=== PATIENT | male | born 1990 | race Caucasian/White ===

== ENCOUNTER 2022-12-18 23:36 | Inpatient (IN) | payer OTHER ==
[~2022-12-18] VITALS: Ht 182.9 cm; Wt 136.0 kg
[2022-12-19 00:58] LABS: BASOPHILS % (AUTO) 0.8 % (0.0-2.0); EOSINOPHILS % (AUTO) 2.8 % (1.0-6.0); HEMATOCRIT 37.6 % (41-53); HEMOGLOBIN 12.4 g/dL (13.5-17.5); LYMPHOCYTES # (AUTO) 2.5 K/uL (1.0-4.8); LYMPHOCYTES % (AUTO) 38.7 % (22.0-44.0); MEAN CORPUSCULAR HEMOGLOBIN 28.8 pg (26.0-34.0); MEAN CORPUSCULAR VOLUME 88 fL (80-100); MONOCYTES # (AUTO) 0.5 K/uL (0.1-1.0); MONOCYTES % (AUTO) 7.2 % (2.0-9.0); NEUTROPHILS # (AUTO) 3.2 K/uL (1.8-7.7); NEUTROPHILS % (AUTO) 50.5 % (40.0-70.0); PLATELET COUNT (AUTO) 296 K/uL (150-450); RED CELL DISTRIBUTION WIDTH 13.9 % (11.5-14.5); WHITE BLOOD COUNT (AUTO) 6.4 K/uL (4.5-11.0)
[2022-12-19 01:10] LABS: CARBON DIOXIDE 31 mmol/L (22-29); CHLORIDE 104 mmol/L (98-107); POTASSIUM 4.4 mmol/L (3.5-5.1); SODIUM SERUM 139 mmol/L (136-145)
[2022-12-19 01:11] LABS: ANION GAP 5 mmol/L (8-16); CALCIUM, TOTAL 9.2 mg/dL (8.8-10.5); CREATININE 1.02 mg/dL (0.60-1.30); GLOMERULAR FILTR. RATE CALC > 60 mL/min (>60); GLUCOSE,RANDOM 98 mg/dL (70-110); UREA NITROGEN, BLOOD 18 mg/dL (7-18)
[2022-12-19 01:13] LABS: ALANINE AMINOTRANSFERASE 11 U/L (12-78); ALBUMIN 3.4 g/dL (3.4-5.0); ALKALINE PHOSPHATASE 70 U/L (46-116); ASPARTATE AMINOTRANSFERASE 17 U/L (15-37); BILIRUBIN,TOTAL 0.2 mg/dL (0.1-1.0); TOTAL PROTEIN, SERUM 6.5 g/dL (6.4-8.2)
[2022-12-19 01:17] LABS: ALCOHOL, BLOOD (SERUM) < 3 mg/dL (0-10)
[2022-12-19] MEDS ORDERED: ACETAMINOPHEN 325 MG TABLET PO PRN (01:45)
[2022-12-19] MEDS ORDERED: ONDANSETRON HCL 4 MG/2 ML VIAL IVP PRN ×2 (01:45)
[2022-12-19] MEDS: 1: MAGNESIUM SULFATE 2 GM, MVI, ADULT NO.1 WITH VIT K 10 ML, THIAMINE 100 MG, FOLIC ACID IV SCH ×15 (02:24→23:57)
[2022-12-19 07:10] LABS: ALCOHOL, URINE DRUG SCREEN NEGATIVE (NEGATIVE); AMPHET/METH SCREEN,URINE POSITIVE (NEGATIVE); BARBITURATE SCREEN, URINE NEGATIVE (NEGATIVE); BENZODIAZEPINES SCREEN,URINE NEGATIVE (NEGATIVE); CANNABINOID SCREEN,URINE NEGATIVE (NEGATIVE); COCAINE SCREEN,URINE NEGATIVE (NEGATIVE); METHADONE SCREEN, URINE NEGATIVE (NEGATIVE); OPIATE SCREEN,URINE NEGATIVE (NEGATIVE); PHENCYCLIDINE SCREEN,URINE NEGATIVE (NEGATIVE)
[2022-12-19] MEDS: HEPARIN SODIUM,PORCINE 5,000 UNITS/ML VIAL SQ SCH ×3 (08:25→23:57)
[2022-12-19] MEDS: DOCUSATE SODIUM 100 MG CAPSULE PO SCH ×2 (08:26→20:51)
[2022-12-19] MEDS: LORazepam 2 MG TABLET PO PRN ×3 (09:05→20:52)
[2022-12-19] MEDS: ACETAMINOPHEN 325 MG TABLET PO PRN (09:06)
[2022-12-19 13:40] VITALS: BP 101/56; PULSE 55; RESP 18; TEMP 97.7
[2022-12-19 16:08] VITALS: BP 112/55; PULSE 50; RESP 18; TEMP 97.8
[2022-12-19 21:05] VITALS: BP 103/55; PULSE 57; RESP 18; TEMP 98.2
[2022-12-20] MEDS: LORazepam 2 MG TABLET PO PRN ×3 (00:07→23:15)
[2022-12-20 05:05] VITALS: BP 108/63; PULSE 54; RESP 18; TEMP 98.4
[2022-12-20 06:41] VITALS: BP 108/63; PULSE 54; RESP 20; TEMP 98.4; O2SAT 98
[2022-12-20] MEDS ORDERED: SODIUM CHLORIDE 0.9% 1,000 ML ONE (07:41)
[2022-12-20] MEDS: LORazepam 2 MG TABLET PO SCH ×5 (08:09→20:08)
[2022-12-20] MEDS: HEPARIN SODIUM,PORCINE 5,000 UNITS/ML VIAL SQ SCH ×3 (08:09→23:11)
[2022-12-20] MEDS: DOCUSATE SODIUM 100 MG CAPSULE PO SCH ×2 (08:09→20:08)
[2022-12-20 08:21] VITALS: BP 109/67; PULSE 59; RESP 20; TEMP 98.6
[2022-12-20] MEDS: 1: MAGNESIUM SULFATE 2 GM, MVI, ADULT NO.1 WITH VIT K 10 ML, THIAMINE 100 MG, FOLIC ACID IV SCH ×10 (08:41→18:25)
[2022-12-20] MEDS: ACETAMINOPHEN 325 MG TABLET PO PRN ×3 (08:41→23:15)
[2022-12-20 20:05] VITALS: BP 122/62; PULSE 61; RESP 18; TEMP 98.3
[2022-12-21 04:10] VITALS: BP 111/75; PULSE 55; RESP 20; TEMP 97.9
[2022-12-21] MEDS ORDERED: SODIUM CHLORIDE 0.9% 1,000 ML ONE (06:12)
[2022-12-21] MEDS: 1: MAGNESIUM SULFATE 2 GM, MVI, ADULT NO.1 WITH VIT K 10 ML, THIAMINE 100 MG, FOLIC ACID IV SCH ×10 (06:13→16:08)
[2022-12-21 07:49] VITALS: BP 108/51; PULSE 68; RESP 18; TEMP 97.4
[2022-12-21] MEDS: HEPARIN SODIUM,PORCINE 5,000 UNITS/ML VIAL SQ SCH ×3 (08:00→23:03)
[2022-12-21] MEDS: LORazepam 2 MG TABLET PO SCH ×4 (08:52→20:02)
[2022-12-21] MEDS: DOCUSATE SODIUM 100 MG CAPSULE PO SCH ×2 (08:55→20:05)
[2022-12-21] MEDS: ACETAMINOPHEN 325 MG TABLET PO PRN (16:08)
[2022-12-21 19:55] VITALS: BP 116/65; PULSE 73; RESP 20; TEMP 98.9
[2022-12-22] MEDS ORDERED: SODIUM CHLORIDE 0.9% 1,000 ML ONE (02:17)
[2022-12-22] MEDS: 1: MAGNESIUM SULFATE 2 GM, MVI, ADULT NO.1 WITH VIT K 10 ML, THIAMINE 100 MG, FOLIC ACID IV SCH ×10 (02:18→14:35)
[2022-12-22 04:30] VITALS: BP 124/68; PULSE 54; RESP 16; TEMP 98.9
[2022-12-22] MEDS ORDERED: LORazepam 1 MG TABLET PO PRN (07:00)
[2022-12-22] MEDS: DOCUSATE SODIUM 100 MG CAPSULE PO SCH ×2 (08:49→19:30)
[2022-12-22] MEDS: LORazepam 1 MG TABLET PO SCH ×4 (08:49→19:29)
[2022-12-22] MEDS: HEPARIN SODIUM,PORCINE 5,000 UNITS/ML VIAL SQ SCH ×2 (08:49→15:56)
[2022-12-22] MEDS: ACETAMINOPHEN 325 MG TABLET PO PRN (08:52)
[2022-12-22 10:15] VITALS: BP 122/55; PULSE 63; RESP 18; TEMP 98.2; O2SAT 99
[2022-12-22 10:59] VITALS: BP 122/55; PULSE 63; RESP 18; TEMP 98.2
[2022-12-23] MEDS ORDERED: LORazepam 1 MG TABLET PO PRN (07:00)
== END 2022-12-22 20:08 | DRG 897 ==
LOC: EMS 23:36 → AHU 12-19 02:00 → 6S 12-19 12:28
PROVIDERS: ADMIT Internal Medicine; ATTEND Internal Medicine
DX: F19.139 Other psychoactive substance abuse with withdrawal, unspecified (principal); Z68.41 Body mass index [BMI] 40.0-44.9, adult; F10.239 Alcohol dependence with withdrawal, unspecified; E66.01 Morbid (severe) obesity due to excess calories; F10.229 Alcohol dependence with intoxication, unspecified; F17.210 Nicotine dependence, cigarettes, uncomplicated; F11.13 Opioid abuse with withdrawal
CPT/HCPCS: 80053; 80307; 85025; 99285; G0480; J1644; J3411; J3475; J3490; J7030

== ENCOUNTER 2023-01-08 17:03 | Emergency (ER) | payer OTHER ==
[~2023-01-08] VITALS: Ht 190.5 cm; Wt 136.4 kg
[2023-01-08 18:33] VITALS: BP 117/75; PULSE 96; RESP 18; TEMP 98.1
[2023-01-08] MEDS ORDERED: DOXYCYCLINE HYCLATE 100 MG TABLET PO ONE (20:30)
[2023-01-08] MEDS ORDERED: IBUPROFEN 600 MG TABLET PO ONE (20:30)
[2023-01-08] MEDS ORDERED: CEPHALEXIN MONOHYDRATE 500 MG CAPSULE PO ONE (20:30)
== END 2023-01-08 20:40 | disposition home or self-care (01) ==
LOC: EMS 17:03
DX: L02.416 Cutaneous abscess of left lower limb (principal); L03.116 Cellulitis of left lower limb; I10 Essential (primary) hypertension; F17.210 Nicotine dependence, cigarettes, uncomplicated; F11.90 Opioid use, unspecified, uncomplicated
CPT/HCPCS: 10060; 99284; Z7502; Z7610